=== PATIENT | female | born 1955 | race Caucasian/White ===

== ENCOUNTER → 2017-12-21 12:43 | Outpatient (CLI) | payer OTHER, SELFPAY ==
[2017-12-21 18:02] LABS: Anion Gap 8 (5-15); BUN 15 mg/dL (7-18); BUN/Creat Ratio 17.1 RATIO (10-20); Calcium,Total 9.1 mg/dL (8.5-10.1); Chloride 105 mmol/L (98-107); Cholesterol 194 mg/dL (200); Creatinine, Serum 0.88 mg/dL (0.55-1.02); EST Glomerular Filtration Rate 70 mL/min (>60); Est Glom Filt Rate - Afr Amer 84 mL/min (>60); Glucose 96 mg/dL (74-106); High Density Lipoprotein 64 mg/dL; Potassium 3.9 mmol/L (3.5-5.1); Sodium Level 143 mmol/L (136-145); T4 Total, Thyroxin 10.5 ug/dL (4.8-13.9); Thyroid Stim Hormone (TSH) 0.39 uIU/mL (0.358-3.74); Triglycerides 108 mg/dL; Very Low Density Lipoprotein 22 mg/dL (5-40)
[2017-12-23 14:21] LABS: HPV Reflexed? NOT INDICATED
== END ==
PROVIDERS: Family Provider Family Medicine; PCP Family Medicine; Referring Provider Family Medicine; Visit Provider Family Medicine
DX: Z12.4 Encounter for screening for malignant neoplasm of cervix (principal); E03.9 Hypothyroidism, unspecified
CPT/HCPCS: 36415; 80048; 80061; 82306; 84436; 84443; 88175; G0145

== ENCOUNTER → 2018-12-25 10:21 | Outpatient (CLI) | payer OTHER, SELFPAY ==
[2018-12-25 12:51] LABS: T4 Total, Thyroxin 10.8 ug/dL (4.8-13.9)
[2018-12-25 13:22] LABS: Vitamin D,25 Hydroxy 31.2 ng/mL (29.95-100.01)
== END ==
PROVIDERS: Family Provider Family Medicine; PCP Family Medicine; Referring Provider Family Medicine; Visit Provider Family Medicine
DX: E03.9 Hypothyroidism, unspecified (principal); E55.9 Vitamin D deficiency, unspecified
CPT/HCPCS: 36415; 82306; 84436; 84443

== ENCOUNTER → 2019-01-16 12:22 | Outpatient (CLI) | payer OTHER, SELFPAY ==
--- NOTE | 2019-01-16 12:24 | BI_ITS ---
MAMMOGRAPHY - BILATERAL SCREENING REASON FOR EXAM: Female, 63 years old. Routine annual screening examination. PERTINENT HISTORY: Daughter with breast cancer. TECHNIQUE: Digital bilateral breast reese (3D mammographic acquisition) in the CC and MLO projections. 2-D mediolateral oblique (MLO) and craniocaudad (CC) views of both breasts were obtained. CAD: Full Field Digital Mammography with Computer Added Detection was performed. COMPARISON: Comparison is made with prior examination dated May 26, 2016 and February 19, 2015. FINDINGS: Breast Composition: The breasts are heterogeneously dense, which may obscure small masses. There are no dominant masses or suspicious calcifications. No other significant abnormalities are identified. There has been no significant change since the prior study. BI/SCREEN MAMM (CAD) W/REESE BILAT IMPRESSION: Stable bilateral screening mammogram. Yearly follow-up mammogram recommended. (A) ASSESSMENT CATEGORY: BIRADS Category 1: Negative. A letter regarding these results will be sent to the patient by the facility within 30 days. Approximately 10% of breast cancers are not detected by mammography. A normal mammogram should not delay biopsy of a clinically suspicious abnormality. [id number] Electronically Signed: Miko Shea, at 13:59 EST , Service support ,
--- NOTE | 2019-01-16 12:29 | BD_ITS ---
STUDY: DUAL ENERGY X-RAY ABSORPTIOMETRY / DXA REASON FOR EXAM: Female, 63 years old. The patient is postmenopausal. Loss of height. TECHNIQUE: Bone Mineral Density (BMD) measurements of lumbar spine and bilateral hips were obtained. COMPARISON: Comparison is made with prior study dated March 20, 2013. FINDINGS: Lumbar Spine (L1-L4): g/cm2 (0.906) / T-score (-2.3) / Z-score (-0.8) Findings are suggestive of osteopenia with a high fracture risk. Left Femur Total: g/cm2 (0.755) / T-score (-2.0) / Z-score (-0.9) Left Femoral Neck: g/cm2 (0.759) / T-score (-2.0) / Z-score (-0.6) Right Femur Total: g/cm2 (0.763) / T-score (-1.9) / Z-score (-0.8) Right Femoral Neck: g/cm2 (0.790) / T-score (-1.8) / Z-score (-0.4) The T-Scores on the most recent prior examination were: Lumbar Spine (L1-L4): There has been worsening of bone density since the previous examination. Left Femur Total: which represents a worsening of 10.5%. Right Femur Total: which represents a worsening of 10.7%. BD/Dexa Bone Density Study IMPRESSION: The patient is considered osteopenic as outlined below according to [place] Organization (WHO) criteria with a high fracture risk. There has been worsening of bone density since the previous examination. Reference Information: The T-score is the number of standard deviations above or below the standard which is normal for young adults at their peak bone mineral density. The World Health Organization (WHO) interprets the T-scores as follows: Above -1 Normal bone density Between -1 and -2.5 Osteopenia Equal to / or below -2.5 Osteoporosis As a practical clinical guideline, osteopenia may be graded as follows: Mild -1 through -1.5 Moderate -1.6 through -2.0 Severe -2.1 through -2.4 The Z-score is the number of standard deviations above or below age-matched controls. A Z-score of less than -1.5 would be considered abnormal. References: 1. NIH Osteoporosis and Related Bone Diseases http://www.osteo.org 2. International Society for Clinical Densitometry http://www.iscd.org 3. National Osteoporosis Foundation http://www.nof.org Electronically Signed: Miko Shea, at 15:56 EST , Service support ,
== END ==
PROVIDERS: Family Provider Family Medicine; PCP Family Medicine; Referring Provider Family Medicine; Visit Provider Family Medicine
DX: Z12.31 Encounter for screening mammogram for malignant neoplasm of breast (principal); Z78.0 Asymptomatic menopausal state
CPT/HCPCS: 77063; 77067; 77080

== ENCOUNTER → 2020-01-07 09:42 | Outpatient (CLI) | payer OTHER, SELFPAY ==
[2020-01-07 12:50] LABS: T4 Total, Thyroxin 12.4 ug/dL (4.8-13.9); Thyroid Stim Hormone (TSH) 0.53 uIU/mL (0.358-3.74)
[2020-01-07 14:04] LABS: Vitamin D,25 Hydroxy 29.9 ng/mL
== END ==
PROVIDERS: PCP Family Medicine; Visit Provider Family Medicine
DX: E03.9 Hypothyroidism, unspecified (principal); E55.9 Vitamin D deficiency, unspecified
CPT/HCPCS: 36415; 82306; 84436; 84443

== ENCOUNTER → 2021-01-14 14:17 | Outpatient (CLI) | payer MEDICARE, SELFPAY ==
[2021-01-14 18:24] LABS: Vitamin D,25 Hydroxy 34.7 ng/mL
[2021-01-14 18:29] LABS: T4 Total, Thyroxin 10.9 ug/dL (4.8-13.9); Thyroid Stim Hormone (TSH) 0.47 uIU/mL (0.358-3.74)
== END ==
PROVIDERS: PCP Family Medicine; Referring Provider Family Medicine; Visit Provider Family Medicine
DX: E55.9 Vitamin D deficiency, unspecified (principal); E03.9 Hypothyroidism, unspecified
CPT/HCPCS: 36415; 82306; 84436; 84443

== ENCOUNTER → 2021-01-26 14:36 | Outpatient (CLI) | payer MEDICARE, SELFPAY ==
--- NOTE | 2021-01-26 14:41 | BI_ITS ---
MAMMOGRAPHY - BILATERAL SCREENING REASON FOR EXAM: Female, 65 years old. Routine annual screening examination. PERTINENT HISTORY: Daughter with breast cancer. TECHNIQUE: Digital bilateral breast jennifer (3D mammographic acquisition) in the CC and MLO projections. 2-D mediolateral oblique (MLO) and craniocaudad (CC) views of both breasts were obtained. CAD: Full Field Digital Mammography with Computer Added Detection was performed. COMPARISON: Comparison is made with prior study dated 01/16/2019 and 05/26/2016. FINDINGS: Breast Composition: The breasts are heterogeneously dense, which may obscure small masses. There are no dominant masses or suspicious calcifications. No other significant abnormalities are identified. There has been no significant change since the prior study. BI/SCREENING MAMM (CAD), BILAT IMPRESSION: Stable bilateral screening mammogram. Yearly follow-up mammogram recommended. (A) ASSESSMENT CATEGORY: BIRADS Category 1: Negative. A letter regarding these results will be sent to the patient by the facility within 30 days. Approximately 10% of breast cancers are not detected by mammography. A normal mammogram should not delay biopsy of a clinically suspicious abnormality. [id number] Electronically Signed: Miko Shea MD at 15:32 EST , Service support ,
== END ==
PROVIDERS: PCP Family Medicine; Referring Provider Family Medicine; Visit Provider Family Medicine
DX: Z12.31 Encounter for screening mammogram for malignant neoplasm of breast (principal)
CPT/HCPCS: 77067

== ENCOUNTER → 2022-02-01 | Outpatient (CLI) | payer MEDICARE, SELFPAY ==
[2022-02-01 10:34] LABS: Cholesterol 234 mg/dL (200); High Density Lipoprotein 80 mg/dL; Thyroid Stim Hormone (TSH) 2.55 uIU/mL (0.358-3.74); Triglycerides 120 mg/dL; Very Low Density Lipoprotein 24 mg/dL (5-40)
== END | disposition home or self-care (01) ==
LOC: MFPLAB 09:09
PROVIDERS: PCP Family Medicine; Visit Provider Family Medicine
DX: Z01.419 Encounter for gynecological examination (general) (routine) without abnormal findings (principal); E03.9 Hypothyroidism, unspecified; E55.9 Vitamin D deficiency, unspecified
CPT/HCPCS: 36415; 80061; 82306; 84436; 84443

== ENCOUNTER → 2022-02-10 | Outpatient (CLI) | payer MEDICARE, SELFPAY ==
--- NOTE | 2022-02-10 13:40 | BI_ITS ---
MAMMOGRAPHY - BILATERAL SCREENING REASON FOR EXAM: Female, 66 years old. Routine annual screening examination. PERTINENT HISTORY: Daughter with breast cancer. TECHNIQUE: Digital bilateral breast reese (3D mammographic acquisition) in the CC and MLO projections. 2-D mediolateral oblique (MLO) and craniocaudad (CC) views of both breasts were obtained. CAD: Full Field Digital Mammography with Computer Added Detection was performed. COMPARISON: Comparison is made with prior study dated 01/26/2021 and 01/16/2019. FINDINGS: Breast Composition: The breasts are heterogeneously dense, which may obscure small masses. There are no dominant masses or suspicious calcifications. No other significant abnormalities are identified. There has been no significant change since the prior study. BI/SCRN MAMM (CAD)W/REESE BILAT IMPRESSION: Stable bilateral screening mammogram. Yearly follow-up mammogram recommended. (A) ASSESSMENT CATEGORY: BIRADS Category 1: Negative. A letter regarding these results will be sent to the patient by the facility within 30 days. Approximately 10% of breast cancers are not detected by mammography. A normal mammogram should not delay biopsy of a clinically suspicious abnormality. [id number] Electronically Signed: Miko Shea MD at 14:40 EST ,
== END | disposition home or self-care (01) ==
LOC: OPBI 13:38
PROVIDERS: PCP Family Medicine; Referring Provider Family Medicine; Visit Provider Family Medicine
DX: Z12.31 Encounter for screening mammogram for malignant neoplasm of breast (principal); Z80.3 Family history of malignant neoplasm of breast
CPT/HCPCS: 77063; 77067

== ENCOUNTER → 2022-05-12 | Outpatient (CLI) | payer MEDICARE, SELFPAY ==
--- NOTE | 2022-05-12 09:55 | BD_ITS ---
STUDY: DUAL ENERGY X-RAY ABSORPTIOMETRY / DXA REASON FOR EXAM: Female, 67 years old. 733.90OsteopeniaBONE DENSITY REASON FOR EXAM TECHNIQUE: Bone Mineral Density (BMD) measurements of lumbar spine and bilateral hips were obtained. COMPARISON: Comparison is made prior study of January 16, 2019. FINDINGS: Lumbar Spine (L1-L4): g/cm2 (0.759) / T-score (-2.6) / Z-score (-0.7) Findings are suggestive of osteoporosis with a high fracture risk. Left Femur Total: g/cm2 (0.693) / T-score (-2.0) / Z-score (-0.7) Left Femoral Neck: g/cm2 (0.578) / T-score (-2.4) / Z-score (-0.8) Right Femur Total: g/cm2 (0.726) / T-score (-1.8) / Z-score (-0.4) Right Femoral Neck: g/cm2 (0.645) / T-score (-1.8) / Z-score (-0.2) The T-Scores on the most recent prior examination were: Lumbar Spine (L1-L4): There has been worsening of bone density since the previous examination. Left Femur Total: which represents a worsening of 0.4%. Right Femur Total: which represents an improvement of 3.1%. BD/Dexa Bone Density Study IMPRESSION: The patient is considered osteoporotic as outlined below according to [place] Organization (WHO) criteria with a high fracture risk. There has been worsening of bone density since the previous examination. Reference Information: The T-score is the number of standard deviations above or below the standard which is normal for young adults at their peak bone mineral density. The World Health Organization (WHO) interprets the T-scores as follows: Above -1 Normal bone density Between -1 and -2.5 Osteopenia Equal to / or below -2.5 Osteoporosis As a practical clinical guideline, osteopenia may be graded as follows: Mild -1 through -1.5 Moderate -1.6 through -2.0 Severe -2.1 through -2.4 The Z-score is the number of standard deviations above or below age-matched controls. A Z-score of less than -1.5 would be considered abnormal. References: 1. NIH Osteoporosis and Related Bone Diseases www osteo.org 2. International Society for Clinical Densitometry www iscd.org 3. National Osteoporosis Foundation www nof.org Electronically Signed: Miko Shea MD at 13:46 EST ,
== END | disposition home or self-care (01) ==
PROVIDERS: PCP Family Medicine; Visit Provider Family Medicine
DX: M85.89 Other specified disorders of bone density and structure, multiple sites (principal)
CPT/HCPCS: 77080

== ENCOUNTER → 2022-12-13 | Outpatient (CLI) | payer MEDICARE, SELFPAY ==
[2022-12-13 15:57] LABS: Vitamin D,25 Hydroxy 31.2 ng/mL
[2022-12-13 16:09] LABS: ALB/GLOB Ratio 0.9 RATIO (0.9-2.4); AST(SGOT) 23 U/L (15-37); Alanine Aminotransfer ALT/SGPT 20 U/L (13-56); Albumin, Serum 3.7 g/dL (3.2-5.0); Alkaline Phosphatase 58 U/L (45-117); Anion Gap 3 (5-15); BUN 12 mg/dL (7-18); BUN/Creat Ratio 15.3 RATIO (10-20); Calcium,Total 8.9 mg/dL (8.5-10.1); Chloride 106 mmol/L (98-107); Creatinine, Serum 0.79 mg/dL (0.55-1.02); EST Glomerular Filtration Rate 77 mL/min (>60); Est Glom Filt Rate - Afr Amer 94 mL/min (>60); Glucose 84 mg/dL (74-106); Protein, Total 7.7 g/dL (6.4-8.2); Sodium Level 141 mmol/L (136-145); T4 Free Direct 1.35 ng/dL (0.76-1.46); Thyroid Stim Hormone (TSH) 0.03 uIU/mL (0.358-3.74)
== END | disposition home or self-care (01) ==
LOC: MFPLAB 11:36
PROVIDERS: PCP Family Medicine; Visit Provider Internal Medicine Endocrinology, Diabetes & Metabolism
DX: E55.9 Vitamin D deficiency, unspecified (principal); E03.8 Other specified hypothyroidism; E06.3 Autoimmune thyroiditis; M81.0 Age-related osteoporosis without current pathological fracture
CPT/HCPCS: 36415; 80053; 82306; 84439; 84443

== ENCOUNTER 2023-01-12 13:51 | Outpatient (CLI) | payer MEDICARE, SELFPAY ==
[2023-01-12 14:02] VITALS: BP 147/67; PULSE 59; RESP 16; TEMP 35.7; O2SAT 100; BMI 21.4
[2023-01-12] MEDS: Zoledronic Acid 5 MG 100 ML 300 MG IV (14:13)
[2023-01-12] MEDS: 0.9% NaCl Peripheral Flush Adult/Peds IV (14:13)
[2023-01-12 14:38] VITALS: BP 130/69; PULSE 60
== END 2023-01-12 13:52 | disposition home or self-care (01) ==
LOC: MEDOUTP 13:52
PROVIDERS: PCP Family Medicine; Referring Provider Internal Medicine Endocrinology, Diabetes & Metabolism; Visit Provider Internal Medicine Endocrinology, Diabetes & Metabolism
DX: M81.0 Age-related osteoporosis without current pathological fracture (principal)
CPT/HCPCS: 96365; A4216; J3489

== ENCOUNTER → 2023-08-19 | Outpatient (CLI) | payer MEDICARE, SELFPAY ==
--- NOTE | 2023-08-19 08:25 | BI_ITS ---
MAMMOGRAPHY - BILATERAL SCREENING REASON FOR EXAM: Female, 68 years old. Routine annual screening examination. PERTINENT HISTORY: Daughter with breast cancer. TECHNIQUE: Digital bilateral breast reese (3D mammographic acquisition) in the CC and MLO projections. 2-D mediolateral oblique (MLO) and craniocaudad (CC) views of both breasts were obtained. CAD: Full Field Digital Mammography with Computer Added Detection was performed. COMPARISON: Comparison is made with prior study of February 10, 2022 and January 26, 2021. FINDINGS: Breast Composition: The breasts are heterogeneously dense, which may obscure small masses. There is a 6.3 mm x 6 mm nodular density deep in the posterior aspect of the left breast as seen on the mediolateral oblique view. The patient will be recalled for additional views including 90 degree lateral and compression spot views. No other significant abnormalities are identified. BI/SCRN MAMM (CAD)W/REESE BILAT IMPRESSION: 6.3 mm x 6 mm nodular density deep in the posterior aspect of the left breast as seen on the mediolateral oblique view. The patient will be recalled for additional views including 90 degree lateral and compression spot views. Recall Side: Left Breast ASSESSMENT CATEGORY: BIRADS Category 0: Incomplete. Need additional imaging evaluation. A letter regarding these results will be sent to the patient by the facility within 30 days. Approximately 10% of breast cancers are not detected by mammography. A normal mammogram should not delay biopsy of a clinically suspicious abnormality. [id number] Electronically Signed: Miko Shea MD at 9:03 EDT ,
== END | disposition home or self-care (01) ==
LOC: OPBI 08:24
PROVIDERS: PCP Family Medicine; Visit Provider Family Medicine
DX: Z12.31 Encounter for screening mammogram for malignant neoplasm of breast (principal); Z80.3 Family history of malignant neoplasm of breast
CPT/HCPCS: 77063; 77067

== ENCOUNTER → 2023-08-22 | Outpatient (CLI) | payer MEDICARE, SELFPAY ==
--- NOTE | 2023-08-22 09:28 | BI_ITS ---
MAMMOGRAPHY - UNILATERAL DIAGNOSTIC: LEFT BREAST REASON FOR EXAM: Female, 68 years old. Abnormal screening mammogram. PERTINENT HISTORY: TECHNIQUE: Compression spot views of the left breast were obtained in the mediolateral oblique and craniocaudad projections. CAD: Full Field Digital Mammography with Computer Added Detection was performed. COMPARISON: Comparison is made with prior mammogram dated August 19, 2023. FINDINGS: Breast Composition: The breasts are heterogeneously dense, which may obscure small masses. Persistent 6 mm x 6 mm nodular density in the deep posterior central aspect of the left breast as seen on the mediolateral oblique view. Correlation with ultrasound is recommended. No other significant abnormalities are identified. BI/DIAG MAMM W/CAD, UNILAT IMPRESSION: Persistent nodular density seen in the mediolateral oblique view in the deep posterior central aspect of the left breast. Colace with ultrasound recommended. ASSESSMENT CATEGORY: BIRADS Category 0: Incomplete. Need additional imaging evaluation. A letter regarding these results will be sent to the patient by the facility within 30 days. Approximately 10% of breast cancers are not detected by mammography. A normal mammogram should not delay biopsy of a clinically suspicious abnormality. Electronically Signed: Miko Shea MD at 10:27 EDT ,
--- NOTE | 2023-08-22 09:28 | US_ITS ---
STUDY: ULTRASOUND BREAST - LEFT REASON FOR EXAM: Female, 68 years old. Abnormal screening mammogram. TECHNIQUE: Axial and longitudinal images of the LEFT breast were performed with a high resolution ultrasound transducer. # OF IMAGES: 25 COMPARISON: Comparison is made with prior mammogram dated August 19, 2023 and August 22, 2023. FINDINGS: LEFT Breast: There is a 1.2 cm x 1 cm x 0.5 cm hypoechoic irregular nodule at the 6:00 position of the breast at 1 centimeter from the nipple. Biopsy is recommended. US/Breast Limited Unilateral IMPRESSION: 1.2 cm x 1 cm x 0.5 cm hypoechoic irregular nodule at the 6:00 position of the breast at 1 cm from the nipple. Biopsy recommended. ASSESSMENT CATEGORY: BIRADS Category 4: Suspicious - Biopsy Should Be Considered. A letter regarding these results will be sent to the patient by the facility within 30 days. Electronically Signed: Miko Shea MD at 13:07 EDT ,
== END | disposition home or self-care (01) ==
LOC: OPBI 09:27
PROVIDERS: PCP Family Medicine; Referring Provider Family Medicine; Visit Provider Family Medicine
DX: R92.8 Other abnormal and inconclusive findings on diagnostic imaging of breast (principal)
CPT/HCPCS: 76642; 77065

== ENCOUNTER → 2023-08-24 | Outpatient (CLI) | payer MEDICARE, SELFPAY ==
--- NOTE | 2023-08-24 | IMM_PTH ---
PATIENT: STEVIE JUSTIN LOC: [facility] U#:[id number] AGE/SX: 68/F ROOM: RE08/24/[address]: Dr. Robert Jarrett MD : 1955 BED: DIS: 08/24/2023 SPEC #: [id number] RECD: 08/26/23 10:15 STATUS: RICA REQ #: [id number] ALIX: 08/24/23 00:[address]: Robert Jarrett DEPT: IMMUNOHISTOCHEMISTRY RECD BY: Bj Dawson ENTERED: 08/26/23 10:17 SP TYPE: IMMUNO OTHR DR: Dr. Jovanna Suarez MD Tissues: Breast, NOS Procedures: Synapto (add) CALPONIN-1 (add) CD56 (add) CHROMO (add) CK5-6 (add) CK8 (add) E-CAD (add) HER2 DESTIN (add) KI-67 (add) P53 (add) VT (add) P40 (add) ER (initial) PHYSICIAN & [address] [address] SPECIMEN INFORMATION: Tissue Source: Left breast biopsy Clinical Info: Left breast mass Specimen Number: [id number] CPT code: 61382,49021v09 METHODOLOGY: Deparaffinized sections of prefer/formalin-fixed tissue or PAP/DQ stained slides are incubated with monoclonal/polyclonal antibodies/oligonucleotide probes. Localization is made via biotin free immunoperoxidase method. Appropriate controls are performed and reacted as expected. Results on target cell population are indicated in the following table: RESULTS: ANTIBODY / CLONE RESULT E-Cad (ECH-6) positive CK8 (41ebweL51) negative Calponin-1 (EL264U) negative CK5-6 (D5 & 1684) positive P40 (BC28) negative P53 (DO-7) negative, null pattern Ki-67 (30-9) positive, >95% CD56 (123C3.D5) negative Chromo (LK2H10) negative Synapto (polyclonal) negative AE1-3 (AE1/AE3/PCK26) CK19 (A53-B/A2.26) MORPHOMETRIC ANALYSIS ER (clone 6F11) 0% VT (clone 16/1E2) 0% Her-2Neu (clone CB11) 1-2+ IN SITU HYBRIDIZATION (RANULFO) FOR HER2 Interpretation: Not Amplified HER2 : CEP-17 Ratio: 1.0 Average HER2 Signal: 2.5 Average CEP-17 Signal: 2.5 Number of Tumor Cells Scanned: 50 Interpretative Information: The INFORM HER2 Dual RANULFO DNA Probe Cocktail assay is performed on formalin-fixed paraffin embedded tissue and determines HER2 gene status by detecting HER2 copies via silver in situ hybridization (SISH) and Chromosome 17 copies via chromogenic red in situ hybridization on tumor cells. A minimum of 20 cells representing > 10% of contiguous and homogeneous invasive tumor cells were analyzed. HER2 gene status is classified as Non-amplified (HER2/Chr17 ratio < 2.0) or Amplified (HER2/Chr17 ratio greater than or equal to 2.0). If the resulting HER2/Chr17 ratio falls within 1.8 - 2.2 (Borderline), retesting by FISH is recommended. Reference: Chidi MORALES, Lanette RAGLAND, Anahy DG, et al: Recommendations for Human Epidermal Growth Factor Receptor 2 Testing in Breast Cancer: [place] Society of Clinical Oncology / College [employer] [place] [employer] Clinical Practice Guideline Update. J Clin Oncol 31:2085-7357, 2013. The test for HER 2 is performed on formalin-fixed paraffin embedded tissue using the CB11 mouse monoclonal antibody ([employer]). A 3+ staining pattern is interpreted as positive and is defined as a strong membranous staining involving the entire cell membrane in over 30% of invasive tumor cells. A similar weak staining pattern (2+) involving 10% of the tumor cells is interpreted as equivocal. HER 2 follow-up testing by FISH is recommended for all equivocal results. Reference: [place] Society of Clinical Oncology and the College of [place] [employer] (J. Clin. Oncol. 23: 118-145, 2007). Fixative Used: Formalin; Duration of Fixation: 6 Hrs; Sample Adequate: Yes INTERPRETATION: Left breast, biopsy: Negative for estrogen receptors (unfavorable prognostic indicator). Negative for progesterone receptors (unfavorable prognostic indicator). Negative for overexpression of JPN6nhh.
--- NOTE | 2023-08-24 | IMM_PTH ---
PATIENT: STEVIE JUSTIN LOC: [facility] U#:[id number] AGE/SX: 68/F ROOM: RE08/24/[address]: Dr. Robert Jarrett MD : 1955 BED: DIS: 08/24/2023 SPEC #: [id number] RECD: 08/26/23 10:15 STATUS: RICA REQ #: [id number] ALIX: 08/24/23 00:[address]: Robert Jarrett DEPT: IMMUNOHISTOCHEMISTRY RECD BY: Bj Dawson ENTERED: 08/26/23 10:17 SP TYPE: IMMUNO OTHR DR: Dr. Jovanna Suarez MD Tissues: Breast, NOS Procedures: Synapto (add) CALPONIN-1 (add) CD56 (add) CHROMO (add) CK5-6 (add) CK8 (add) E-CAD (add) HER2 DESTIN (add) KI-67 (add) P53 (add) CO (add) P40 (add) ER (initial) PHYSICIAN & [address] [address] SPECIMEN INFORMATION: Tissue Source: Left breast biopsy Clinical Info: Left breast mass Specimen Number: [id number] CPT code: 02943,[id number] METHODOLOGY: Deparaffinized sections of prefer/formalin-fixed tissue or PAP/DQ stained slides are incubated with monoclonal/polyclonal antibodies/oligonucleotide probes. Localization is made via biotin free immunoperoxidase method. Appropriate controls are performed and reacted as expected. Results on target cell population are indicated in the following table: RESULTS: ANTIBODY / CLONE RESULT E-Cad (ECH-6) positive CK8 (64uofzC39) negative Calponin-1 (QC436Y) negative CK5-6 (D5 & 1684) positive P40 (BC28) negative P53 (DO-7) negative, null pattern Ki-67 (30-9) positive, >95% CD56 (123C3.D5) negative Chromo (LK2H10) negative Synapto (polyclonal) negative AE1-3 (AE1/AE3/PCK26) CK19 (A53-B/A2.26) MORPHOMETRIC ANALYSIS ER (clone 6F11) 0% CO (clone 16/1E2) 0% Her-2Neu (clone CB11) 1-2+ IN SITU HYBRIDIZATION (RANULFO) FOR HER2 Interpretation: Not Amplified HER2 : CEP-17 Ratio: 1.0 Average HER2 Signal: 2.5 Average CEP-17 Signal: 2.5 Number of Tumor Cells Scanned: 50 Interpretative Information: The INFORM HER2 Dual RANULFO DNA Probe Cocktail assay is performed on formalin-fixed paraffin embedded tissue and determines HER2 gene status by detecting HER2 copies via silver in situ hybridization (SISH) and Chromosome 17 copies via chromogenic red in situ hybridization on tumor cells. A minimum of 20 cells representing > 10% of contiguous and homogeneous invasive tumor cells were analyzed. HER2 gene status is classified as Non-amplified (HER2/Chr17 ratio < 2.0) or Amplified (HER2/Chr17 ratio greater than or equal to 2.0). If the resulting HER2/Chr17 ratio falls within 1.8 - 2.2 (Borderline), retesting by FISH is recommended. Reference: Chidi MORALES, Lanette RAGLAND, Anahy DG, et al: Recommendations for Human Epidermal Growth Factor Receptor 2 Testing in Breast Cancer: [place] Society of Clinical Oncology / College of [place] [employer] Clinical Practice Guideline Update. J Clin Oncol 31:2532-1710, 2013. The test for HER 2 is performed on formalin-fixed paraffin embedded tissue using the CB11 mouse monoclonal antibody ([employer] Smart[employer]). A 3+ staining pattern is interpreted as positive and is defined as a strong membranous staining involving the entire cell membrane in over 30% of invasive tumor cells. A similar weak staining pattern (2+) involving 10% of the tumor cells is interpreted as equivocal. HER 2 follow-up testing by FISH is recommended for all equivocal results. Reference: [place] Society of Clinical Oncology and the College of [place] [employer] (J. Clin. Oncol. 23: 118-145, 2007). 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 Negative for estrogen receptors (unfavorable prognostic indicator). Negative for progesterone receptors (unfavorable prognostic indicator). Negative for overexpression of [id number]. AM/mr 08/29/2023
--- NOTE | 2023-08-24 13:40 | BRBX_PTH ---
PATIENT: STEVIE JUSTIN LOC: [facility] U#:[id number] AGE/SX: 68/F ROOM: RE08/24/[address]: Dr. Robert Jarrett MD : 1955 BED: DIS: 08/24/2023 SPEC #: [id number] RECD: 08/24/23 14:04 STATUS: RICA REJeanna #: [id number] ALIX: 08/24/23 13:[address]: Robert Jarrett DEPT: SURGICAL PATHOLOGY RECD BY: Kathy Hampton ENTERED: 08/25/23 07:02 SP TYPE: BREAST BX OTHR DR: Dr. Jovanna Suarez MD Tissues: Left breast, NOS Procedures: Surgery Specimen Level IV HEADER OPERATION: Left breast biopsy PRE-OP DIAGNOSIS: Left breast mass TISSUE SUBMITTED: Left breast biopsy Ischemic Time: 1 minute Fixation Time: 6 hours MICROSCOPIC DIAGNOSIS Left breast mass, core biopsy: Invasive ductal carcinoma. See cancer summary in the comment section. KIKI/ 08/26/2023 COMMENT INVASIVE BREAST CANCER SUMMARY: Procedure: Needle core biopsy Specimen Laterality: left Tumor site: not specified Histologic type: invasive ductal carcinoma/basal- like carcinoma Provisional Histologic grade: Glandular/Tubule Differentiation Score: 3 Nuclear Pleomorphism Score:3 Mitotic Rate Score:2 Overall grade: Grade 3 (score of 8) Tumor Size ( greatest dimension): Largest focus of invasive carcinoma is 0.5cm in greatest length Ductal Carcinoma Insitu: not identified Lymphatic/vascular invasion: not identified Microcalcifications: not identified Additional Findings: Immunohistochemistry ([id number]) supports the above diagnosis. Breast Marker Study: [id number] ER: 0% NE: 0% Her2: 1-2+ (Equivocal) Ki67: >95% [id number]: Not amplified (negative) The above summary is in compliance with College of [employer] (CAP) Cancer Protocols Checklist and [place] Joint Committee on Cancer (AJCC), Staging Manual, 8th Ed. Case has been reviewed in consultation with Dr. Rocha who concurs with the above diagnosis. IDC:AM MICROSCOPIC DESCRIPTION Slides are reviewed. GROSS DESCRIPTION Received in fixative is one container labeled with the patient's name and designated Left breast biopsy. The specimen consists of multiple elongated fragments of moya-yellow fibroadipose tissue measuring in aggregate 1.5 x 0.5 x 0.1cm. The entire specimen is submitted in one cassette. Jyoti 08/25/2023 TC:0 CPT:88958
== END | disposition home or self-care (01) ==
LOC: LABSPEC 14:04
PROVIDERS: PCP Family Medicine; Referring Provider Surgery; Visit Provider Surgery
DX: N63.20 Unspecified lump in the left breast, unspecified quadrant (principal)
CPT/HCPCS: 88305; 88341; 88342

== ENCOUNTER → 2023-12-14 | Outpatient (CLI) | payer MEDICARE, SELFPAY ==
[2023-12-14 10:40] LABS: T4 Free Direct 1.08 ng/dL (0.76-1.46)
== END | disposition home or self-care (01) ==
LOC: MTLAB 08:17
PROVIDERS: PCP Family Medicine; Referring Provider Internal Medicine Endocrinology, Diabetes & Metabolism; Visit Provider Internal Medicine Endocrinology, Diabetes & Metabolism
DX: E03.8 Other specified hypothyroidism (principal); E06.3 Autoimmune thyroiditis
CPT/HCPCS: 36415; 84439; 84443

== ENCOUNTER 2024-01-17 14:50 | Outpatient (CLI) | payer MEDICARE, SELFPAY ==
[2024-01-17 15:03] VITALS: BP 138/74; PULSE 103; RESP 16; TEMP 36.2; O2SAT 95; BMI 21.2
[2024-01-17] MEDS: Zoledronic Acid 5 MG 5 MG in Premixed Bag 1 BAG 300 MG IV (15:11)
[2024-01-17 15:37] VITALS: BP 123/66; PULSE 95; RESP 16; TEMP 36.7; O2SAT 98
== END 2024-01-17 23:59 | disposition home or self-care (01) ==
LOC: MEDOUTP 14:51
PROVIDERS: PCP Family Medicine; Referring Provider Internal Medicine Endocrinology, Diabetes & Metabolism; Visit Provider Internal Medicine Endocrinology, Diabetes & Metabolism
DX: M81.0 Age-related osteoporosis without current pathological fracture (principal)
CPT/HCPCS: 96365; A4216; J3489

== ENCOUNTER 2024-01-18 12:13 | Emergency (ER) | payer MEDICARE, SELFPAY ==
[2024-01-18] VITALS (8 sets, daily range): BP systolic 159; BP diastolic 80; PULSE 81–113; RESP 16–24; TEMP 36.6; O2SAT 95; BMI 215.3; BMI 21.7
[2024-01-18 13:25] LABS: Hematocrit 34.2 % (37-47); Hemoglobin 11.3 g/dL (12.0-15.0); Mean Corpuscular Hgb 32.8 pg (27.0-32.0); Mean Corpuscular Volume 99.1 fL (81-99); POSITIVE COUNT YES; POSITIVE DIFFERENTIAL YES; POSITIVE MORPHOLOGY YES; Platelet Count 215 K/mm3 (150-450); RBC Distribution Width CV 17.9 % (11.6-14.6); RBC Distribution Width SD 62.5 fl (35.1-43.9); Red Blood Count 3.45 M/mm3 (4.2-5.4); White Blood Count 29.3 K/mm3 (4.4-11.0)
[2024-01-18 13:26] LABS: Differential Indicated MANUAL DIFF
[2024-01-18 13:36] LABS: International Normalized Ratio 1.1; Prothrombin Time (Protime)PT. 13.9 SECONDS (11.7-14.9)
[2024-01-18 13:37] LABS: Partial Thromboplast Time 25.8 Seconds (24.1-36.2)
[2024-01-18 13:41] LABS: Anion Gap 4 (5-15); BUN 12 mg/dL (7-18); BUN/Creat Ratio 15.2 RATIO (10-20); Calcium,Total 8.7 mg/dL (8.5-10.1); Chloride 106 mmol/L (98-107); Creatinine, Serum 0.79 mg/dL (0.55-1.02); EST Glomerular Filtration Rate 77 mL/min (>60); Est Glom Filt Rate - Afr Amer 93 mL/min (>60); Estimated Creatinine Clearance 241.64 ml/min; Glucose 114 mg/dL (74-106); Potassium 4.1 mmol/L (3.5-5.1); Sodium Level 137 mmol/L (136-145); Troponin-I HS 80 pg/mL (3.0-54.0)
[2024-01-18 13:46] LABS: BNP,B-Type NATRIURETIC PEPTIDE 122.8 pg/mL (0-100)
[2024-01-18 13:48] LABS: Bacteria 0 SEEN /hpf (None Seen); Color, Urine Yellow (Yellow); Glucose, Dipstick Normal (Normal); Ketone-Dipstick Negative (Negative); Leukocyte Esterase-Dipstick Negative /ul (Negative); Mucous, Urine 0 SEEN /hpf (<or=2+); Nitrite-Dipstick Negative (Negative); Occult Blood-Urine Negative /ul (Negative); Protein-Dipstick Negative (Negative); Red Blood Cells-Urine 0 SEEN /hpf (0-5); Specific Gravity, Urine 1.005 (1.002-1.030); Squamous Epithelial Cells - UA 0 SEEN /hpf (5-10); Urine Bilirubin Dipstick Negative (Negative); Urine Clarity Clear (Clear); Urine Urobilinogen Normal (Normal); White Blood Cells 0 SEEN /hpf (0-5)
[2024-01-18 14:20] LABS: Lymphocyte 3 % (19-41); Metamyelocyte 1 % (0-1); Monocyte 2 % (0-10); Neutrophil-Band 2 % (0-5); Neutrophil-Segmented 92 % (47-70); Total Cells Counted 100 (MANUAL DIFF)
[2024-01-18 14:21] LABS: Absolute Lymphocyte Count 0.88 X10^3/uL (0.83-4.51); Absolute Neutrophil Count 27.5 X10^3/uL (2.0-7.7)
[2024-01-18 14:23] LABS: Anisocytosis 1+; Dohle Bodies 1+; Macrocytosis 1+; Platelet Estimate ADEQUATE (ADEQ); Polychromasia 1+; Schistocytes RARE; Toxic Granulation 1+; Vacuolated Cells 1+
[2024-01-18 14:41] LABS: Lactic Acid 0.8 mmol/L (0.4-1.9)
[2024-01-18 15:50] LABS: Troponin-I HS 69 pg/mL (3.0-54.0)
[2024-01-20 08:10] LABS: Pathologist Review Reviewed
== END 2024-01-18 19:02 | disposition home or self-care (01) ==
PROVIDERS: Emergency Provider Emergency Medicine; PCP Family Medicine; Visit Provider Emergency Medicine
DX: R06.02 Shortness of breath (principal); C50.919 Malignant neoplasm of unspecified site of unspecified female breast; E03.9 Hypothyroidism, unspecified; M81.0 Age-related osteoporosis without current pathological fracture; R94.31 Abnormal electrocardiogram [ECG] [EKG]; Z79.899 Other long term (current) drug therapy
CPT/HCPCS: 71275; 80048; 81001; 83605; 83880; 84484; 85025; 85610; 85730; 87040; 87086; 87088; 93005; 93306; 99283; Q9967; A4216

== ENCOUNTER → 2024-02-15 | Outpatient (CLI) | payer MEDICARE, SELFPAY ==
--- NOTE | 2024-02-15 10:41 | STE_ITS ---
Reason For Study: DYSPNEA/ Stress Results Protocol: [facility]arson Protocol Maximum Predicted HR: 152 bpm Target HR: 129 bpm % Maximum Predicted HR: 101 % DurationHeart Rate Stage (mm:ss) (bpm) BP Comment BASELINE 72 142/72 STAGE 1 3:00 126 136/70 STAGE 2 3:00 134 142/60 STAGE 3 3:00 144 144/52HEAVIER BREATHING, NO CHEST PAIN STAGE 4 1:00 153 / RECOVERY 100 128/70 Stress Duration: 10:00 mm:ss Maximum Stress HR: 153 bpm Baseline Echocardiogram Findings The estimated ejection fraction is 60 %. Postexercise EF is 70%. Stress Echo Wall motion Data Resting WM Intermediate WM Stress WM Resting Wall Motion Wall Motion Stress No regional wall motion No regional wall motion abnormalities noted. abnormalities noted. EKG Data The baseline ECG displays normal sinus rhythm. No significant ischemic changes. Symptoms with Stress The patient experinced no chest pain . ECHO/Stress Test Echo w/o Contrast Interpretation Summary The estimated ejection fraction is 60 %. Exercise echo is negative for exercise-induced chest pain or EKG changes or ech ocardiographic changes of ischemia. Functional capacity is excellent for age Ordering Physician: Ranulfo Prince Referring Physician: Ranulfo Prince Performed By: Dayanna Rodriguez, LATIA, RVT
== END | disposition home or self-care (01) ==
LOC: CVS 10:40
PROVIDERS: PCP Family Medicine; Referring Provider Internal Medicine Cardiovascular Disease; Visit Provider Internal Medicine Cardiovascular Disease
DX: R94.31 Abnormal electrocardiogram [ECG] [EKG] (principal); R06.02 Shortness of breath
CPT/HCPCS: 93017; 93350; A4216

== ENCOUNTER → 2024-12-17 | Outpatient (CLI) | payer MEDICARE, SELFPAY ==
[2024-12-17 10:53] LABS: AST(SGOT) 26 U/L (<=31); Alanine Aminotransfer ALT/SGPT 13 U/L (<=34); Albumin, Serum 4.1 g/dL (3.4-4.8); Alkaline Phosphatase 54 U/L (35-104); Anion Gap 11 (5-15); BUN 17 mg/dL (4-19); BUN/Creat Ratio 22.1 RATIO (10-20); Calcium,Total 9.2 mg/dL (7.6-11.0); Carbon Dioxide 27.5 mmol/L (21.0-32.0); Chloride 104 mmol/L (98-108); Globulin 3.1 g/dL (2.2-4.2); Glucose 83 mg/dL (70-99); Potassium 4.0 mmol/L (3.3-5.1); Vitamin D,25 Hydroxy 42.1 ng/mL (30-100)
== END | disposition home or self-care (01) ==
PROVIDERS: Nurse Practitioner Family; PCP Family Medicine; Referring Provider Internal Medicine Endocrinology, Diabetes & Metabolism; Visit Provider Internal Medicine Endocrinology, Diabetes & Metabolism
DX: E06.3 Autoimmune thyroiditis (principal); E03.8 Other specified hypothyroidism; M81.0 Age-related osteoporosis without current pathological fracture
CPT/HCPCS: 36415; 80053; 82306; 84439; 84443